=== PATIENT | female | born 1995 | race Caucasian/White ===

== ENCOUNTER 2016-07-11 20:53 | Emergency (ER) | payer BC ==
[~2016-07-11] VITALS: Ht 162.6 cm; Wt 55.0 kg
[2016-07-11 21:04] VITALS: TEMP 36.8; Ht 162.6 cm; Wt 55.0 kg
[2016-07-11] MEDS ORDERED: ETHY1TAB PO (21:46)
[2016-07-11] MEDS ORDERED: CNC/54 PO (21:46)
[2016-07-11] MEDS ORDERED: SERT50TA PO (21:46)
[2016-07-11] MEDS ORDERED: FLUCONAZOLE 50 MG TAB PO ONE (22:00)
[2016-07-11] MEDS ORDERED: FLUC150T PO (22:02)
--- NOTE | 2016-07-11 22:03 | EMERGENCY ROOM VISIT NOTE ---
History First contact with patient: 21:43 Chief Complaint: VAGINAL DISCHARGE Stated Complaint: VAGINAL ITCHING & BURNING History of Present Illness The patient is a 20 year old female who presents to the Emergency Room with complaints of a possible yeast infection. The patient states that she was on antibiotics for an ear infection last week. She states that 2 days ago, she began to develop vaginal itching and burning. She used Monistat with no relief. Her symptoms have been worsening today. She denies any unusual discharge. She states she has a history of yeast infections and this one feels similar. She denies any urinary symptoms, abdominal pain or fevers. She is sexually active but denies any chance of STD. Review of Systems A complete 10 point review of systems was reviewed with the patient with pertinent positives and negatives as per history of present illness. All else were negative. Social History Smoking Status: Never Smoker Current/Historical Medications Scheduled Ethynodiol Diacet & Eth Estrad (Kelnor ), 1 TAB PO DAILY Fluconazole (Diflucan), 150 MG PO DAILY Methylphenidate Hcl (Concerta), 54 MG PO QAM Sertraline (Zoloft), 50 MG PO DAILY Allergies Coded Allergies: No Known Allergies (Unverified , 07/11/16) Physical Exam Vital Signs Date Time Temp Pulse Resp B/P Pulse Ox O2 Delivery O2 Flow Rate FiO2 07/11/16 22:08 67 18 127/75 99 07/11/16 21:04 36.8 69 18 129/72 99 Room Air Physical Exam VITALS: Vitals are noted on the nurse's note and reviewed by myself. Vital signs stable. GENERAL: This is a 20-year-old female, in no acute distress, nondiaphoretic, well-developed well-nourished. HEART: Regular rate and rhythm without murmurs gallops or rubs. LUNGS: Clear to auscultation bilaterally without wheezes, rales or rhonchi. ABDOMEN: Positive bowel sounds x 4. Soft, nontender to palpation. NEURO: Patient was alert and oriented to person place and time. Medical Decision & Procedures Medications Administered Medications (Trade) Dose Ordered Sig/Makenna Route Start Time Stop Time Status Last Admin Dose Admin Fluconazole (Diflucan Tab) 150 mg NOW ONCE PO 07/11/16 22:00 07/11/16 22:01 DC 07/11/16 21:59 150 MG Medical Decision Differential diagnosis includes vaginal candidiasis, STD, urinary tract infection, among others. The patient was evaluated as above. Her history is consistent with vaginal candidiasis. I did offer a pelvic exam versus treatment for a presumed yeast infection, and the patient states that she prefers to be treated without pelvic at this time. She was given a single dose of Diflucan and a prescription to repeat this in 3 days if she has persistent symptoms. She was instructed to return here or follow-up with [facility] if she has persistent symptoms, abdominal pain or fevers. She verbalized understanding of my assessment and treatment plan and was discharged home in good condition. Impression Primary Impression: Vaginal candidiasis Departure Information Dispostion Home / Self-Care Condition GOOD Prescriptions Fluconazole (DIFLUCAN) 150 Mg Tab 150 MG PO DAILY for 1 Day, #1 TAB Prov: Geneva Bai ., JEREMY 07/11/16 Referrals No Doctor, Assigned (PCP) Patient Instructions My [facility] Additional Instructions Take the second dose of the Diflucan in 3 days if you have persistent symptoms. Return here or go to [facility] or your [facility] if you have persistent symptoms despite this. Return here if you develop abdominal pain, fevers, urinary symptoms or any other new/concerning symptoms.
[2016-07-11 22:08] VITALS: BP 127/75; PULSE 67; O2SAT 99
== END 2016-07-11 22:08 | disposition home or self-care (01) ==
LOC: C.EDB 20:56 → C.EDD 22:08
DX: B37.3 Candidiasis of vulva and vagina (principal); Z79.899 Other long term (current) drug therapy

== ENCOUNTER 2016-10-24 22:10 | Emergency (ER) | payer BC ==
[~2016-10-24] VITALS: Ht 162.6 cm; Wt 47.6 kg
[~2016-10-24 22:10] MED LIST: CNC/54 PO; ETHY1TAB PO; SERT50TA PO
[2016-10-24 22:13] VITALS: TEMP 36.4; Ht 162.6 cm; Wt 47.6 kg
[2016-10-24] MEDS ORDERED: OXYMETAZOLINE HCL 0.05% NA SPR 15 ML BTL STA (22:38)
[2016-10-24] MEDS ORDERED: BCPILLS PO (22:57)
[2016-10-24] MEDS ORDERED: METH1TAB17 PO (22:57)
[2016-10-24] MEDS ORDERED: PARO12.5 PO (22:57)
[2016-10-25] MEDS ORDERED: AMOX500C3 PO (00:43)
[2016-10-25] MEDS ORDERED: HYDR-5688 PO (00:43)
[2016-10-25] MEDS ORDERED: AMOXICILLIN HOME PACK 250 MG/TAB PO ONE (00:45)
[2016-10-25] MEDS ORDERED: NORCO 5/325MG HOME PACK PO ONE (00:45)
[2016-10-25] MEDS ORDERED: EMPTY 8 DRAM VIAL ONE (01:07)
[2016-10-25 01:10] VITALS: BP 149/99; PULSE 60; O2SAT 97
[2016-10-25] MEDS ORDERED: FLUCONAZOLE 50 MG TAB PO ONE (01:15)
--- NOTE | 2016-10-25 04:00 | EMERGENCY ROOM VISIT NOTE ---
History First contact with patient: 23:01 Chief Complaint: NOSE BLEED (MINOR) Stated Complaint: NOSE BLEED,VOMITING BLOOD History of Present Illness The patient is a 20 year old female who presents to the Emergency Room with complaints of epistaxis for the past 7 hours. The patient does not recall injury or trauma to her nose. She has not had fever or chills, but states that around 4 PM she had scant bleeding from her nose. She applied pressure to her nose, and after 25 or 30 minutes she did have improvement of her symptoms. She states that around 9 PM she had a return of bleeding, however it did not stop this time. She now presents to the emergency department for further evaluation. The patient does not take NSAIDs or blood thinners. She does not have a history of epistaxis or known coagulopathy. She is not having pain and considers herself otherwise usually healthy. Review of Systems More than 10 systems were reviewed and otherwise negative with the exception of history of present illness. Past Medical/Surgical History No pertinent chronic medical disease Family History No pertinent family history Social History Smoking Status: Never Smoker Housing Status: lives with family Current/Historical Medications Scheduled Amoxicillin (Amoxil), 500 MG PO TID Control Pills ( Control Pills), 1 TAB PO DAILY Methylphenidate Hcl (Methylphenidate Hcl Er), 27 MG PO QAM Paroxetine Hcl (Paxil Cr), 12.5 MG PO DAILY Scheduled PRN Hydrocodone/Acetaminophen 5MG/325MG ([place] 5MG/325MG), 1 TABLET PO Q6 PRN for Pain Physical Exam Vital Signs Date Time Temp Pulse Resp B/P (MAP) Pulse Ox O2 Delivery O2 Flow Rate FiO2 10/25/16 01:10 60 17 149/99 97 10/25/16 00:03 74 18 113/78 98 Room Air 10/24/16 22:13 36.4 79 18 132/80 98 Room Air Pain Rating (0-10): 7.0 Physical Exam VITALS: Vitals are noted on the nurse's note and reviewed by myself. Vital signs stable. GENERAL: Well-developed, well-nourished, 20-year-old female, who is in no acute distress and resting comfortably. Patient is cooperative with the examination. NOSE: There is red blood noted in the left nares consistent with anterior bleed. There is no significant blood in the right nares. MOUTH: Mucous membranes moist. Tonsils are not enlarged. Pharynx with scant red blood NECK: Supple without nuchal rigidity. No lymphadenopathy. No thyromegaly. Cervical spine is nontender. HEART: Regular rate and rhythm without murmurs gallops or rubs. Medical Decision & Procedures Medications Administered Medications (Trade) Dose Ordered Sig/Makenna Route Start Time Stop Time Status Last Admin Dose Admin Oxymetazoline HCl (Afrin 0.05% Nasal Warriormine) 2 sprays NOW STAT NA 10/24/16 22:38 10/24/16 22:39 DC 10/24/16 22:57 2 SPRAYS Acetaminophen/ Hydrocodone Bitart ([place] 5/325mg Home Pack) 1 homepack UD ONCE PO 10/25/16 00:45 10/25/16 00:46 DC 10/25/16 01:01 1 HOMEPACK Amoxicillin (Amoxil 250MG Home Pack) 1 homepack UD ONCE PO 10/25/16 00:45 10/25/16 00:46 DC 10/25/16 01:01 1 HOMEPACK Fluconazole (Diflucan Tab) 150 mg NOW ONCE PO 10/25/16 01:15 10/25/16 01:16 DC 10/25/16 01:09 150 MG ED Course Physical exam and history were performed. Nursing notes, EMR, and Medication List were personally reviewed. Patient appears to have epistaxis from her left side nares. Prior to my evaluation of the patient she was already treated with Afrin and a nasal clamp by nursing. Upon my arrival this has been in place for nearly 30 minutes. I was able to perform my examination, which did show a small amount of left anterior bleeding. After observing the patient for a few minutes, she did have recurrence of her epistaxis. I did apply more Afrin as well as an application of Hemaderm. The nasal clamp was replaced and left in position for nearly 40 minutes. I once again removed the clamp, and the patient had almost immediate bleeding from the left side nares. At this point we discussed the importance of nasal packing, and a rapid Rhino was placed and inflated the left side nares. This did stop the bleeding. The patient will be started on a short course of amoxicillin. She'll be given a course of Vicodin for pain control. The patient will need to follow-up in the next 2-3 days here in the department for packing removal and a recheck. She may need ENT if this persists. She was otherwise invited back to the ER sooner for any new, worsening, or concerning symptoms. The chart was completed utilizing [employer] Voice Recognition Software. Grammatical errors, random word insertions, pronoun errors, and incomplete sentences are an occasional consequence of this system due to software limitations, ambient noise, and hardware issues. Any formal questions or concerns about the content, text, or information contained within the body of this dictation should be directly addressed to the provider for clarification. . Medical Decision Differential diagnosis: Etiologies such as anterior epistaxis, coagulopathy, traumatic injury, fracture , septal hematoma, posterior epistaxis as well as other pathologies were entertained. Impression Primary Impression: Anterior epistaxis Departure Information Dispostion Home / Self-Care Condition GOOD Prescriptions Hydrocodone/Acetaminophen 5MG/325MG ([place] 5MG/325MG) Tab 1 TABLET PO Q6 Y for Pain, #8 TAB For Initial Treatment Prov: Christian Hayes PA-C 10/25/16 Amoxicillin (AMOXIL) 500 Mg Cap 500 MG PO TID for 3 Days, #9 CAP Prov: Christian Hayes PA-C 10/25/16 Forms HOME CARE DOCUMENTATION FORM, IMPORTANT VISIT INFORMATION Patient Instructions My [facility], ED Nosebleed Additional Instructions You were seen and evaluated today on an emergency basis only. This is not a substitute for, or an effort to provide, complete comprehensive medical care. It is not possible to recognize and treat all injuries or illnesses in a single emergency department visit. For this reason it is recommended that you followup with the ER in 2-3 days for packing removal. Take amoxil 500 mg 3 times daily to prevent infection. [place] (hydrocodone/acetaminophen) 5/325 mg every 6 hours as needed for worsening breakthrough pain. Do not drink or drive on [place]. This medication will likely make you tired. Do not take [place] and Tylenol at the same time as both contain acetaminophen. [place] may cause constipation. You may wish to take an [id number] stool softener like Colace if this occurs. You are welcome to return to the emergency department anytime with new, worsening, or concerning symptoms.
== END 2016-10-25 01:10 | disposition home or self-care (01) ==
LOC: C.EDB 22:11
DX: R04.0 Epistaxis (principal)

== ENCOUNTER 2016-10-26 18:03 | Emergency (ER) | payer BC ==
[~2016-10-26] VITALS: Ht 162.6 cm; Wt 53.3 kg
[~2016-10-26 18:03] MED LIST changes: +AMOX500C3 PO; +BCPILLS PO; -CNC/54 PO; -ETHY1TAB PO; +HYDR-5688 PO; +METH1TAB17 PO; +PARO12.5 PO; -SERT50TA PO
[2016-10-26 18:06] VITALS: BP 112/78; PULSE 95; TEMP 36.8; O2SAT 99; Ht 162.6 cm; Wt 53.3 kg
--- NOTE | 2016-10-26 18:26 | EMERGENCY ROOM VISIT NOTE ---
ED Visit Note First contact with patient: 18:09 CHIEF COMPLAINT: Removal of nasal packing HISTORY OF PRESENT ILLNESS: This 20-year-old female patient presents to the emergency department for removal of nasal packing. The patient was seen 2 days ago for a nosebleed which she was unable to control. A rhino rocket was placed in the left there and left for 2 days. The patient has not had any rebleeding that she is aware of. The patient did have a nose ring in her left there, which was not removed prior to packing being placed. The patient states she is feeling a little bit of tenderness and had some drainage coming from the piercing, but otherwise denies significant pain, discharge, or other symptoms. The patient denies fever, chills, diarrhea, or side effects to the antibiotics. She has been taking amoxicillin as prescribed as well as Crosby as needed. REVIEW OF SYSTEMS: A 6 system review of systems was performed with positives and pertinent negatives listed in the history of present illness. All other systems were reviewed and are negative. ALLERGIES: None MEDICATIONS: Please see list. I did personally review the patient's medication list with her at bedside. PMH: Epistaxis, ADHD, depression SOCIAL HISTORY: The patient lives locally. She denies drug, alcohol, tobacco use. PHYSICAL EXAM: VITALS: Vitals are noted on the nurse's note and reviewed by myself. Vital signs stable. GENERAL: This is a 20-year-old female, in no acute distress, nondiaphoretic, well-developed well-nourished. SKIN: The skin was without rashes, erythema, edema, or bruising. There is no tenting of the skin. Capillary reflex less than 2 seconds. HEAD: Normocephalic atraumatic. EARS: External auditory canals clear, tympanic membranes pearly pfeiffer without erythema or effusion bilaterally. EYES: Pupils equal round and reactive to light and accommodation. Conjunctivae without injection, sclerae without icterus. Extraocular movements intact. NOSE: Nasal packing in place in the left nare. There is no obvious bleeding surrounding the packing. There has a small amount of pus from the nasal piercing. Otherwise, and on further inspection after packing removal, nose was patent, turbinates without inflammation or discharge. There was minimal dried blood in the left there, but no active bleeding. No sinus tenderness. MOUTH: Mucous membranes moist. Tonsils are not enlarged. Pharynx without erythema or exudate. Uvula midline. Airway patent. Tongue does not deviate. NECK: Supple without nuchal rigidity. No lymphadenopathy. No thyromegaly. Cervical spine is nontender. No JVD. EMERGENCY DEPARTMENT COURSE: The patient was seen and evaluated as above. Nasal packing was removed after 3cc of air was removed from the rhino rocket. Packing was removed without difficulty. There is no ongoing bleeding. I did remove the patient's nose ring at her request. The Nare was cleaned with gauze. A small amount of bacitracin ointment was applied to the piercing. The patient was given discharge instructions as well as a nasal clamp and was discharged home in good condition. DIFFERENTIAL DIAGNOSIS: Epistaxis, malignancy, and others. DIAGNOSIS: Removal of nasal packing DISCHARGE INSTRUCTIONS & TREATMENT: Please continue antibiotics as prescribed. You may continue to use Crosby as needed for pain. If you experience rebleeding, use the nasal clip provided for 15 minutes. Remove the clip, and if you continued to bleed reapply it. If the bleeding continues after another 15 minutes, return to the emergency department. Use saline nasal spray or ointment in the nose to help moisten the airways and prevent rebleeding. Run a humidifier in her bedroom, especially at night to help keep the airways moist. If nose bleeds continued to be an issue, follow-up with ENT. You were given the name and information for a local ENT doctor. Return to the emergency department for worsening bleeding, discharge, pus, fevers, chills, or other concerning symptoms. Please follow-up with your PCP in 2-3 days for recheck. Current/Historical Medications Scheduled Amoxicillin (Amoxil), 500 MG PO TID Control Pills ( Control Pills), 1 TAB PO DAILY Methylphenidate Hcl (Methylphenidate Hcl Er), 27 MG PO QAM Paroxetine Hcl (Paxil Cr), 12.5 MG PO DAILY Scheduled PRN Hydrocodone/Acetaminophen 5MG/325MG ([place] 5MG/325MG), 1 TABLET PO Q6 PRN for Pain Allergies Coded Allergies: No Known Allergies (Unverified , 07/11/16) Vital Signs Date Time Temp Pulse Resp B/P (MAP) Pulse Ox O2 Delivery O2 Flow Rate FiO2 10/26/16 18:06 36.8 95 18 112/78 99 Room Air Departure Information Impression Primary Impression: Encounter for removal of nasal packing Dispostion Home / Self-Care Condition GOOD Referrals No Doctor, Assigned (PCP) Pradip Burnett M.D. Patient Instructions ED Ramana, Kayla [facility] Additional Instructions Please continue antibiotics as prescribed. You may continue to use Crosby as needed for pain. If you experience rebleeding, use the nasal clip provided for 15 minutes. Remove the clip, and if you continued to bleed reapply it. If the bleeding continues after another 15 minutes, return to the emergency department. Use saline nasal spray or ointment in the nose to help moisten the airways and prevent rebleeding. Run a humidifier in her bedroom, especially at night to help keep the airways moist. If nose bleeds continued to be an issue, follow-up with ENT. You were given the name and information for a local ENT doctor. Return to the emergency department for worsening bleeding, discharge, pus, fevers, chills, or other concerning symptoms. Please follow-up with your PCP in 2-3 days for recheck.
== END 2016-10-26 18:39 | disposition home or self-care (01) ==
LOC: C.EDB 18:03 → C.EDD 18:39
DX: Z48.01 Encounter for change or removal of surgical wound dressing (principal); F90.9 Attention-deficit hyperactivity disorder, unspecified type; F32.9 Major depressive disorder, single episode, unspecified